=== PATIENT | male | born 1990 | race Caucasian/White ===

== ENCOUNTER 2023-05-18 11:16 | Day surgery (SDC) | payer OTHER, SELFPAY ==
[2023-05-18] VITALS (18 sets, daily range): BP systolic 118–167; BP diastolic 72–100; PULSE 18–89; RESP 10–17; TEMP 35.9–37.1; O2SAT 61–98; BMI 39.9
--- NOTE | 2023-05-18 11:45 | ED_ITS ---
HPI - General Adult General Time Seen by Provider: 11:45 Date Seen: 05/18/23 Chief complaint: Abdominal Pain Stated complaint: Lower R abdominal pain, nausea Time Seen by Provider: 05/18/23 11:17 Source: patient Mode of arrival: ambulatory Limitations: no limitations History of Present Illness HPI narrative: Derik is a 32-year-old male with obstructive sleep apnea, moderate persistent asthma, history of bone graft presents emerged department via private car and self with abdominal pain. Patient states he was working overnight and [place], around 4:00 a.m. he developed some right lower quadrant pain with some radiation to the groin area and straight through to the back. Associated nausea vomiting, he did vomit 3 times this morning, he only ate a bag of chips prior to developing the pain, he has not eaten or drank anything since then. No fevers or chills, no upper respiratory complaints. Patient denies any abdominal surgeries, patient has not had anything like this in the past. Patient denies any smoking, he will occasionally drinks alcohol. Patient has had normal bowel movements, no urinary complaints. The pain is 8/10, constant and sharp in nature. Pain is better with laying still. Patient drove himself to the emergency department. Related Data Home Medications Medication Instructions Recorded Confirmed trazodone 50 mg tablet 50 mg PO QHS PRN 07/14/22 04/26/23 Previous Rx's Medication Instructions Recorded albuterol sulfate 90 mcg/actuation 2 puff inhalation Q4H PRN 07/14/22 aerosol inhaler (Proventil HFA) shortness of breath or wheezing #8.5 grams beclomethasone dipropionate 80 1 inh inhalation BID 30 days #10.6 07/14/22 mcg/actuation HFA breath activated grams aerosol (Qvar RediHaler) montelukast 10 mg tablet 10 mg PO QDAY #90 tabs 07/14/22 (Singulair) Allergies Allergy/AdvReac Type Severity Reaction Status Date / Time cat dander Allergy Severe Verified 05/18/23 12:24 Review of Systems Status of ROS: Reports: 10 or more systems reviewed and unremarkable except as noted in History and below [facility] Medical History Moderate persistent asthma ?J45.40 - Moderate persistent asthma, uncomplicated (ICD-10) KASSANDRA (obstructive sleep apnea) ?G47.33 - Obstructive sleep apnea (adult) (pediatric) (ICD-10) Surgical History H/O bone graft ?Z98.890 - Other specified postprocedural states (ICD-10) Social History Smoking Status: Never smoker How often do you have a drink containing alcohol: monthly or less AUDIT-C Alcohol total score: 1 Non-prescribed substance use: denies use Little interest or pleasure in doing things: not at all Feeling down, depressed, or hopeless: not at all service: No Exam Narrative: Exam Narrative: General: With no obvious distress laying comfortably HEENT: Pupils equal round reactive to light, extraocular muscles intact, oral mucosa moist Lung: Clear to auscultation bilaterally Heart: Normal sinus rhythm S1-S2 Abdomen: Soft, bowel sounds present, tender to palpation the right lower quadrant, no rebound or guarding. Periumbilical hernia present, nontender to palpation. Muscle skeletal: +5 strength upper lower extremities Neuro: Alert awake and oriented x3 Const: Vital Signs, click to edit/add: Vital Signs - 24 hr 05/18/23 11:24 05/18/23 12:17 05/18/23 12:18 Temperature 96.7 F L Pulse Rate [Pulse Oximeter] 58 L 57 L Respiratory Rate 16 Blood Pressure [Ri [facility]] 119/76 Pulse Oximetry 61 L 92 92 Oxygen Delivery Me thod Room Air Room Air 05/18/23 13:12 Temperature Pulse Rate [Pulse Oximeter] 79 Respiratory Rate 16 Blood Pressure [Ri t Upper Arm] 118/72 Pulse Oximetry 97 Oxygen Delivery Me thod Room Air Course Course ED Course: 11:30 AM: AIDET performed. Vitals are normal at this time, workup will include IV peripheral, 0.9 normal saline bolus, 4 mg IV Zofran, 15 mg IV Toradol, 0.5 mg IV Dilaudid for nausea and pain, will obtain CBC, CRP, CMP, lipase, urinalysis, suspect appendicitis versus diverticulitis versus urolithiasis versus less likely cholecystitis. Other differentials include aortic aneurysm, mesentery ischemia, bowel perforation, bowel obstruction, GERD, pancreatitis peptic ulcer disease pyelonephritis, urolithiasis testicular torsion inflammatory bowel disease as well as all etiologies. CBC showed leukocytosis, lactate elevated at 3.1 likely due to volume depletion less likely sepsis, or ischemia, metabolic panel within normal limits, glucose mildly elevated at 140, CRP was negative, will plan to repeat lactate level once fluid administration is complete, plan to obtain CT abdomen pelvis with IV contrast rule out appendicitis. Patient's pain has been controlled. Reevaluation(s) Reevaluation #1: CT abdomen pelvis with IV contrast: IMPRESSION: 1. Appendix measures 9 millimeter in diameter with a 4 millimeter appendicolith. Mild periappendiceal fat stranding. Findings are concerning for acute appendicitis. 2. Moderate fat containing periumbilical hernia with mild fat stranding may represent incarceration. Consider correlation with physical examination for tenderness in this region. 1:00 PM: Spoke with Dr. Mingo VELA, general surgery on-call, she accepts care of the patient to a same day admission, no antibiotics to be given at this time, patient was updated was in agreement this plan. Time of Reevaluation #2: 12:56 Vital Signs Vital signs: Initial Vital Signs Temperature 96.7 F L 05/18/23 11:24 Temperature Source Temporal Artery Scan 05/18/23 11:24 Pulse Rate 58 L 05/18/23 11:24 Pulse Rhythm Regular 05/18/23 11:24 Blood Pressure 119/76 05/18/23 11:24 Blood Pressure Mean 90 05/18/23 11:24 Blood Pressure Position Sitting 05/18/23 11:24 Pulse Oximetry 61 L 05/18/23 11:24 Oxygen Delivery Method Room Air 05/18/23 11:24 Vital Signs Temperature 96.7 F L 05/18/23 11:24 Pulse Rate 58 L 05/18/23 11:24 Blood Pressure 119/76 05/18/23 11:24 Pulse Oximetry 61 L 05/18/23 11:24 Oxygen Delivery Method Room Air 05/18/23 11:24 Temperature 96.7 F L 05/18/23 11:24 Pulse Rate 79 05/18/23 13:12 Respiratory Rate 16 05/18/23 13:12 Blood Pressure 118/72 05/18/23 13:12 Pulse Oximetry 97 05/18/23 13:12 Oxygen Delivery Method Room Air 05/18/23 13:12 Medications Administered Medications: Discontinued Medications Generic Name Dose Route Start Last Admin Trade Name Jorge Luisq PRN Reason Stop Dose Admin Hydromorphone HCl 0.5 mg 05/18/23 11:43 05/18/23 12:00 Hydromorphone 0.5 Mg/0.5 Ml Inj IVP 05/18/23 11:44 0.5 mg ONCE ONE Administration Sodium Chloride 1,000 mls @ 1,000 mls/hr 05/18/23 11:43 05/18/23 12:08 0.9 % Sodium Chloride 1000 Ml IV 05/18/23 12:42 1,000 mls/hr .Q1H HARRY Administration Ketorolac Tromethamine 15 mg 05/18/23 11:43 05/18/23 12:05 Ketorolac 15 Mg/Ml Inj IVP 05/18/23 11:44 15 mg ONCE ONE Administration Ondansetron HCl 4 mg 05/18/23 11:43 05/18/23 12:03 Ondansetron 2 Mg/Ml Inj IVP 05/18/23 11:44 4 mg ONCE ONE Administration Medical Decision Making Lab Data Labs: Lab Results 05/18/23 Range/Units 11:35 WBC 13.41 H (4.50-11.00) K/uL RBC 4.99 (4.30-5.90) m/uL Hgb 13.9 (13.5-17.5) gm/dL Hct 43.0 (37.0-53.0) % MCV 86 (80-100) fL MCH 28 (26-34) pg MCHC 32 (32-36) gm/dL RDW Coeff of Susanna 13.2 (11.5-15.5) % Plt Count 282 (140-440) K/uL Neut % (Auto) 81.3 H (42.0-72.0) % Lymph % (Auto) 13.0 L (20-44) % [place] % (Auto) 4.3 (0.0-11.0) % Eos % (Auto) 1.2 (0.0-7.0) % Baso % (Auto) 0.1 (0.0-3.0) % Neut # (Auto) 10.90 H (1.7-7.0) K/uL Lymph # (Auto) 1.70 (0.90-2.90) K/uL [place] # (Auto) 0.60 (0.00-0.90) K/UL Eos # (Auto) 0.20 (0.00-0.50) K/uL Baso # (Auto) 0.00 (0.00-0.30) K/uL Abs Immat Gran (auto) 0.00 (0.00-0.30) K/uL Imm/Tot Granulo (auto) 0.1 % Sodium 138 (135-149) mmol/L Potassium 4.8 (3.6-5.1) mmol/L Chloride 105 (96-114) mmol/L Carbon Dioxide 20 (20-32) mmol/L Anion Gap 13 (7-15) mEq/L BUN 14 (5-24) mg/dL Creatinine 0.8 (0.5-1.5) mg/dL Estimated Creat Clear 123.94 Estimated GFR 121 ml/min Glucose 140 H (60-115) mg/dL Lactate 3.1 H (0.5-1.9) mmol/L Calcium 9.5 (8.4-10.6) mg/dL Total Bilirubin 0.7 (0.1-1.5) mg/dL AST 32 (12-35) U/L ALT 33 (4-50) U/L Alkaline Phosphatase 65 (40-150) U/L C-Reactive Protein < 0.5 L (0.5-1.0) mg/dL Total Protein 8.4 H (6.0-8.3) g/dL Albumin 4.7 (3.3-5.0) g/dL Lipase 38 (23-300) U/L Discharge Plan Discharge Clinical Impression: Periumbilical hernia, Acute appendicitis Patient Disposition: XFER to OR Follow Up/Referrals: Theodora Simon MD [Staff Physician] -
[2023-05-18 11:48] LABS: Lactate* 3.1 mmol/L (0.5-1.9)
[2023-05-18 11:51] LABS: Basophils Percent Auto 0.1 % (0.0-3.0); Eosinophils Percent Auto 1.2 % (0.0-7.0); Hemoglobin* 13.9 gm/dL (13.5-17.5); Immature Granulocytes Pct Auto 0.1 %; Mean Corpuscular HGB Conc 32 gm/dL (32-36); Mean Corpuscular Hemoglobin 28 pg (26-34); Mean Corpuscular Volume 86 fL (80-100); Monocytes Percent Auto 4.3 % (0.0-11.0); Neutrophils Percent Auto 81.3 % (42.0-72.0); Platelet Count* 282 K/uL (140-440); RDW Coefficient of Variation % 13.2 % (11.5-15.5); Red Blood Count 4.99 m/uL (4.30-5.90); White Blood Count* 13.41 K/uL (4.50-11.00)
[2023-05-18 11:53] LABS: Slide Review Reflex No
[2023-05-18] MEDS: HYDROmorphone 0.5 mg/0.5 ml inj IVP (12:00)
[2023-05-18] MEDS: ONDANSETRON 2 MG/ML inj 4 MG IVP (12:03)
[2023-05-18] MEDS: KETOROLAC 15 MG/ML inj IVP (12:05)
[2023-05-18] MEDS: 0.9 % SODIUM CHLORIDE 1000 ml 1,000 ML IV ×2 (12:08→13:27)
--- NOTE | 2023-05-18 12:12 | CT_ITS ---
Patient: ANTONY CHESTER Facility:?[facility] Patient ID:?[id number] Site Patient ID:?[id number]. Site :?[id number] Study:?CT-Abdomen/Pelvis W/ 125CC ISOVUE 370-05/18/2023 12:32:54 PM Ordering Physician:VASQUEZ Final Report: INDICATION: Right lower quadrant abdominal pain TECHNIQUE: CT of the abdomen and pelvis was obtained with 125 mL of Isovue 370 intravenous contrast. Please note that all CT scans at this facility use dose modulation, iterative reconstruction, and/or weight-based dosing when appropriate to reduce radiation dose to as low as reasonably achievable. COMPARISON: None. FINDINGS: Lower thorax: Normal. Liver and biliary tree: Normal. Gallbladder: Normal. Spleen: Normal. Pancreas: Normal. Adrenal glands: Normal. Kidneys and ureters: No hydronephrosis. No obstructing renal calculi. Gastrointestinal tract: Appendix measures 9 millimeter in diameter (2/113) with a 4 millimeter appendicolith. Mild periappendiceal fat stranding. No evidence of bowel obstruction. Peritoneal cavity: Mild periappendiceal fat stranding. Bladder: Normal. Pelvic organs: Normal. Vasculature: Normal. Lymph nodes: Normal. Abdominal wall: Moderate fat containing periumbilical hernia with mild fat stranding. Small [id number]-right fat containing inguinal hernias. Musculoskeletal: Normal. IMPRESSION: 1. Appendix measures 9 millimeter in diameter with a 4 millimeter appendicolith. Mild periappendiceal fat stranding. Findings are concerning for acute appendicitis. 2. Moderate fat containing periumbilical hernia with mild fat stranding may represent incarceration. Consider correlation with physical examination for tenderness in this region. Please note that all CT scans at this facility use dose modulation, iterative reconstruction, and/or weight-based dosing when appropriate to reduce radiation dose to as low as reasonably achievable. Dictated by Harjinder Hernandez MD @ 05/18/2023 12:44:24 PM Signed by:?Harjinder Hernandez MD @05/18/2023 12:44:24 PM (Electronic Signature)
[2023-05-18 12:32] LABS: Albumin* 4.7 g/dL (3.3-5.0)
[2023-05-18 12:33] LABS: Chloride* 105 mmol/L (96-114); Potassium* 4.8 mmol/L (3.6-5.1); Sodium* 138 mmol/L (135-149)
[2023-05-18 12:35] LABS: Alkaline Phosphatase* 65 U/L (40-150); Anion Gap 13 mEq/L (7-15); Aspartate Amino Transferase* 32 U/L (12-35); Bilirubin Total* 0.7 mg/dL (0.1-1.5); Blood Urea Nitrogen* 14 mg/dL (5-24); Carbon Dioxide* 20 mmol/L (20-32); Creatinine* 0.8 mg/dL (0.5-1.5); Est. Creatinine Clearance* 123.94; Estimated Glomerular Filt Rate 121 ml/min; Total Protein* 8.4 g/dL (6.0-8.3)
[2023-05-18 12:36] LABS: Alanine Aminotransferase* 33 U/L (4-50); Calcium* 9.5 mg/dL (8.4-10.6); Glucose* 140 mg/dL (60-115); Lipase* 38 U/L (23-300)
[2023-05-18 12:41] LABS: C Reactive Protein* < 0.5 mg/dL (0.5-1.0)
[2023-05-18 13:34] LABS: Appearance Urine Clear (Clear); Bilirubin Urine Negative (Negative); Blood Urine Negative (Negative); Color Urine Yellow (Yellow); Glucose Urine Negative (Negative); Ketones Urine Negative (Negative); Leukocyte Esterase Urine Negative (Negative); Nitrite Urine Negative (Negative); Protein Urine Negative (Negative); Urobilinogen Urine 0.2 (0.2-1.0)
[2023-05-18 13:47] LABS: RBC Urine 0-2 (0-2); Squamous Epithelial Cell Urine Few (None-Few); WBC Urine 0-2 (0-5)
--- NOTE | 2023-05-18 14:13 | PC.NURSE ---
Report given to Denae LAGUNAS. All belongings sent with patient.
[2023-05-18] MEDS: 0.9 % SODIUM CHLORIDE 1000 ml 1,000 ML 75 ML IV (14:47)
[2023-05-18 15:01] LABS: Lactate* 2.5 mmol/L (0.5-1.9)
--- NOTE | 2023-05-18 16:08 | P.GSHP_ITS ---
History of Present Illness History of Present Illness Date Seen: 05/18/23 Chief complaint: Lower R abdominal pain, nausea Narrative: Derik Ibarra is a 32 year old male who presented to emergency room with right lower quadrant abdominal pain this started at 4:00 a.m. in the morning. Patient was at work. The pain persistent and did not go way. The pain was worse with movement. The pain was described as dull and sharp. Patient had nausea but no vomiting. He did not notice passing gas today. Patient's workup in the emergency room was personally reviewed by me. He was found to have an elevated WBC of 13.4. His lactate was elevated. An abdominal CT was obtained that showed a wall enhancing appendix with minimal periappendiceal inflammation and presence of appendicolith. There was no evidence of dilated small large intestine. Patient also had an incarcerated fat containing umbilical hernia. Patient denied pain at the umbilicus. Review of Systems Narrative: General: no fevers CV: No chest pain Resp: Patient has a history of asthma and has been using his albuterol inhaler daily. GI: See above : The right lower quadrant pain radiates to his right testicle. Skin: no new rashes Neuro: no muscle weakness PFSH PFSH Medical History Moderate persistent asthma ?J45.40 - Moderate persistent asthma, uncomplicated (ICD-10) KASSANDRA (obstructive sleep apnea) ?G47.33 - Obstructive sleep apnea (adult) (pediatric) (ICD-10) Surgical History H/O bone graft ?Z98.890 - Other specified postprocedural states (ICD-10) Social History Smoking Status: Never smoker How often do you have a drink containing alcohol: monthly or less AUDIT-C Alcohol total score: 1 Non-prescribed substance use: denies use Little interest or pleasure in doing things: not at all Feeling down, depressed, or hopeless: not at all service: No Meds Home Medications and Allergies Home Medications Medication Instructions Recorded Confirmed Type trazodone 50 mg tablet 50 mg PO QHS PRN 07/14/22 05/18/23 History montelukast 10 mg tablet 10 mg PO DAILY 05/18/23 05/18/23 History (Singulair) Allergies Allergy/AdvReac Type Severity Reaction Status Date / Time cat dander Allergy Severe Verified 05/18/23 12:24 Exam Narrative: Exam Narrative: General appearance: Alert, cooperative, and in no distress Pulmonary: Chest symmetric, lungs clear bilaterally Cardiovascular Heart: Regular rate and rhythm, S1, S2, no murmurs/rubs/gallops Gastrointestinal Abdominal: soft, obese, not distended, tender to palpation in the right lower quadrant with rebound tenderness and positive Rovsing sign. Patient also has a small umbilical hernia that is reducible. Skin: Normal skin color, texture, and turgor. No rashes or lesions. Psychiatric: Alert, cooperative, normal affect. Const: Vital Signs, click to edit/add: Vital Signs - 24 hr 05/18/23 11:24 05/18/23 12:17 05/18/23 12:18 Temperature 96.7 F L Pulse Rate [Pulse Oximeter] 58 L 57 L Respiratory Rate 16 Blood Pressure [Ri ght Arm] Blood Pressure [Ri ght Upper Arm] 119/76 Pulse Oximetry 61 L 92 92 Oxygen Delivery Me thod Room Air Room Air 05/18/23 13:12 05/18/23 14:10 05/18/23 15:54 Temperature 98.6 F 98.2 F Pulse Rate [Pulse Oximeter] 79 63 75 Respiratory Rate 16 14 16 Blood Pressure [Ri ght Arm] 128/72 128/76 Blood Pressure [Ri ght Upper Arm] 118/72 Pulse Oximetry 97 96 75 L Oxygen Delivery Me thod Room Air Room Air Room Air Progress Note:A&P Assessment and plan (1) Acute appendicitis: Status: Acute Assessment and Plan: 32-year-old male presents with early acute appendicitis. I discussed with the patient his laboratory and imaging findings. On his CT there is evidence of wall enhancing appendix with mild periappendiceal inflam mation concerning for acute appendicitis. Patient's umbilical hernia is not tender to palpation and has not been symptomatic. I recommended to proceed with laparoscopic appendectomy. The procedure was discussed in detail. The risks associated procedure including infection, bleeding, injury to intra-abdominal organs and possible need for additional procedures were all discussed with the patient, and he agreed to proceed. We briefly discussed the management of umbilical hernia and if patient develops any symptoms associated with his umbilical hernia, he can come to surgery clinic for consultation.
[2023-05-18] MEDS: CEFAZOLIN 2 GM INJ IVP (16:25)
[2023-05-18] MEDS: BUPIVACAINE 0.25% 30 ML INJECTION (16:57)
--- NOTE | 2023-05-18 17:18 | PM.GSPRC ---
Operative Note Date of procedure: 05/18/23 Pre-op diagnosis: 1. Acute appendicitis. Post-op diagnosis: Same Type of Procedure: 1. Laparoscopic appendectomy. Indications: 32-year-old male presented to emergency room with right lower quadrant abdominal pain that started early in the morning. The pain was persistent and was not going away. He had nausea but no vomiting. In the emergency room he was found to have an elevated WBC of 13. An abdominal CT was obtained that showed wall enhancing appendix with mild periappendiceal inflammation with an appendicolith. There was no dilated loops of small large intestine. On clinical exam patient had tenderness to palpation in the right lower quadrant with rebound tenderness and positive Rovsing sign. Given patient's clinical history and his imaging findings, acute appendicitis was suspected, and laparoscopic appendectomy was recommended. The procedure was discussed in detail. The risks associated procedure including infection, bleeding, and injury to intra-abdominal organs were all discussed with the patient, and he agreed to proceed. Procedure Description: After discussing the risks and benefits of the procedure, the patient signed informed consent.? The operative site was marked and the patient was brought to the operating room and placed on the operating table in supine position.? Care was taken to pad the patient's pressure points.?? The patient was then intubated by anesthesia.?? The operative site was then prepped and draped in the usual sterile fashion.? A time-out was then performed. A 5-mm laparoscopy port was placed in the left upper quadrant guided by a 5-mm laparoscope placed into a translucent trochar. Passage through the layers of the abdominal wall was visualized with the laparoscope. A pneumoperitoneum was established. A 30-degree 5-mm laparoscope was advanced into the abdomen. The abdomen was briefly surveyed, and there was no evidence of diffuse peritonitis. A 12-mm port and a 5-mm port were placed in the left low quadrant and suprapubically, respectively, under direct visualization by laparoscope. Left upper quadrant entrance port was then examined intraabdominally by placing the camera through the left lower quadrant port and no intraabdominal injury was seen. The patient was placed in Trendelenburg position, allowing the abdominal contents to shift cephalad. The small bowel was moved toward the midline in the abdomen and this allowed for identification of the appendix. The distal third of the appendix appeared to be inflamed. The appendix was grasped and dissected from the peritoneum using Harmonic scalpel. Appendiceal mesentery was divided with Harmonic scalpel. When the base of the appendix was visualized, a vascular load Endo-MARGOT stapler was advanced through the 12-mm port into the abdomen and appendix was stapled off at its base. The appendix was then placed in an endoscopic retrieval bag and extracted from the abdomen through the 12-mm port. The abdomen was surveyed for hemostasis. And no bleeding was seen. The 12-mm port was withdrawn and the fascial defect was closed with 0-0 Vicryl stitch using Ricardo Nuno needle under direct visualization. The 5-mm port was removed under direct visualization. The left upper quadrant port was used to evacuate the pneumoperitoneum and then withdrawn. The skin incisions were closed with 4-0 monocryl. Steri-Strips were applied over the incisions. All counts were correct at the end of the case. The patient tolerated this procedure well and was transferred to PACU in stable condition. Findings: Hyperemic and inflamed distal appendix with no evidence of perforation. Anesthesia: GETA Surgeon: Danny Aguila MD Estimated blood loss (mL): 5 Specimen: Appendix Condition: stable Disposition: PACU
--- NOTE | 2023-05-18 17:19 | W.ANESCHARGE ---
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
--- NOTE | 2023-05-18 17:45 | SUR.PHASEI ---
patient met pacu d/c criteria per anesthesia
[2023-05-18] MEDS: HYDROCODONE-ACETAMIN 5-325 MG 1 TAB PO (18:06)
[2023-05-18] MEDS: LACTATED RINGERS 1000 ML 1,000 ML 100 ML IV (18:10)
--- NOTE | 2023-05-18 18:37 | PC.NURSE ---
End of Shift: Patient pleasant and cooperative. Patient vitally stable, lungs clear, BS WNL, IV running LR at 100. Patient not up from yet. Patient rated pain at most 3/10, 2 norco tabs given. Abdominal lap sites x3 C/D/I. Patient tolerating regular diet, eating crackers, pudding, and popsicle.
--- NOTE | 2023-05-18 19:48 | PC.NURSE ---
Discharge: Patient urinated before discharge. Patient signed belonging sheet and discharge form, patient had no further questions regarding discharge. Patient left the floor ambulating to home at 1946.
== END 2023-05-18 19:46 | disposition home or self-care (01) ==
LOC: ED 13:12 → OR 14:02 → MEDSURG 14:03
PROVIDERS: Emergency Provider Student in an Organized Health Care Education/Training Program; Visit Provider Surgery
PROC: 0DTJ4ZZ Resection of Appendix, Percutaneous Endoscopic Approach (ICD-10-PCS; CPT 44970; principal; 2023-05-18 16:00)
DX: K35.80 Unspecified acute appendicitis (principal); R10.31 Right lower quadrant pain; K42.9 Umbilical hernia without obstruction or gangrene; G47.33 Obstructive sleep apnea (adult) (pediatric); J45.40 Moderate persistent asthma, uncomplicated
CPT/HCPCS: 44970; 00840; 36415; 74177; 80053; 81001; 83605; 83690; 85025; 86140; 88304; 94761; 99140; 99283; 99285; A9270; J0330; J0665; J0690; J1100; J1170; J1885; J2250; J2405; J2704; J2710; J3010; J7030; J7120; Q9967

== ENCOUNTER 2023-05-19 19:23 | Emergency (ER) | payer OTHER, SELFPAY ==
--- NOTE | 2023-05-19 19:25 | ED.GENADULT ---
HPI - General Adult General Date Seen: 05/19/23 Chief complaint: Post Op Complication Stated complaint: Abdominal pain post appendectomy Time Seen by Provider: 05/19/23 19:25 History of Present Illness HPI narrative: 32-year-old male who is 1 day status post laparoscopic appendectomy, also with a history of sleep apnea, asthma, presenting to the ER today for re-evaluation of abdominal pain. He was seen in the ER yesterday for abdominal pain was diagnosed with acute appendicitis. Workup from ER 05/17: WBC 13.4, hemoglobin 13.9, platelet count 282 Sodium 138, potassium 4.8, chloride 105, bicarb 20, BUN 14, creatinine 0.8, glucose 140, LFTs normal. Lipase normal 38. Venous lactic 3.1 CT abdomen pelvis with IV contrast: IMPRESSION: 1. Appendix measures 9 millimeter in diameter with a 4 millimeter appendicolith. Mild periappendiceal fat stranding. Findings are concerning for acute appendicitis. 2. Moderate fat containing periumbilical hernia with mild fat stranding may represent incarceration. Consider correlation with physical examination for tenderness in this region. He underwent laparoscopic appendectomy. Report is that the surgery went well. He was discharged home with his yesterday Evening. Since discharge he has had steadily worsening pain centered mostly in his left lower quadrant and around his left lower quadrant laparoscopic incision. There has not been any redness or drainage around the incision. No bleeding. The pain is sharp and stabbing and searing in nature. It is very severe whenever he tries to move her 1 every tries to go from sitting to so standing or sitting to laying. It is still present but much less intense when he holds still. He has not had a fever. No nausea or vomiting. He feels like he needs to pass a bowel movement but has not been able to. He has been taking the prescribed pain meds (hydrocodone), and finds that they do not help. No fever. No urinary symptoms. No pain in his groin or testicles. Related Data Home Medications Medication Instructions Recorded Confirmed trazodone 50 mg tablet 50 mg PO QHS PRN 07/14/22 05/18/23 montelukast 10 mg tablet 10 mg PO DAILY 05/18/23 05/18/23 (Singulair) Previous Rx's Medication Instructions Recorded albuterol sulfate 90 mcg/actuation 2 puff inhalation Q4H PRN 07/14/22 aerosol inhaler (Proventil HFA) shortness of breath or wheezing #8.5 grams beclomethasone dipropionate 80 1 inh inhalation BID 30 days #10.6 07/14/22 mcg/actuation HFA breath activated grams aerosol (Qvar RediHaler) hydrocodone 5 mg-acetaminophen 325 1 tab PO Q6H PRN pain #20 tabs 05/18/23 mg tablet Allergies Allergy/AdvReac Type Severity Reaction Status Date / Time cat dander Allergy Severe Verified 05/19/23 20:18 [facility] Medical History Moderate persistent asthma ?J45.40 - Moderate persistent asthma, uncomplicated (ICD-10) KASSANDRA (obstructive sleep apnea) ?G47.33 - Obstructive sleep apnea (adult) (pediatric) (ICD-10) Surgical History H/O bone graft ?Z98.890 - Other specified postprocedural states (ICD-10) Social History Smoking Status: Never smoker How often do you have a drink containing alcohol: monthly or less AUDIT-C Alcohol total score: 1 Non-prescribed substance use: denies use Little interest or pleasure in doing things: not at all Feeling down, depressed, or hopeless: not at all service: No Exam Narrative: Exam Narrative: Constitutional: Appears well-developed and well-nourished. Alert. Conversant. Uncomfortable and prefers to stay standing straight up as that is his position of least discomfort with his abdomen. He has a lot of pain when trying to reposition the bed for abdominal exam. Non toxic. HENT: Head: Atraumatic. Nose: Nose normal. Mouth/Throat: Oral mucosa is clear and moist. no trismus. Eyes: Conjunctivae normal. EOM normal. Pupils equal, round, and reactive to light. No scleral icterus. Neck: Normal range of motion. Neck supple. No tracheal deviation present. Cardiovascular: Normal rate, regular rhythm. No gallop. No friction rub. No murmur heard. Symmetric radial artery pulses Pulmonary/Chest: Effort normal. No stridor. No respiratory distress. No wheezes. No rales. No rhonchi . No tenderness. Abdominal: Soft. Bowel sounds normal. No distension. No mass. Marked left lower quadrant and left mid abdominal tenderness. No CVA tenderness. No rebound. No guarding. Left lower quadrant, suprapubic, and umbilical incisions all look clean, dry. Incisions are well apposed. No erythema. No bleeding. No drainage. Musculoskeletal: RUE: Normal range of motion. No tenderness. No deformity LUE: Normal range of motion. No tenderness. No deformity RLE: Normal range of motion. No edema. No tenderness. No deformity LLE: Normal range of motion. No edema. No tenderness. No deformity Neurological: Alert and oriented to person, place, and time. Normal strength. CN II-VII intact. No sensory deficit. GCS eye subscore is 4. GCS verbal subscore is 5. GCS motor subscore is 6. Normal coordination Skin: Skin is warm and dry. No rash noted. No pallor. Normal capillary refill. Psychiatric: Normal mood. Normal affect. Const: Vital Signs, click to edit/add: Vital Signs - 24 hr 05/19/23 19:33 Temperature 97.6 F Pulse Rate [Pulse Oximeter] 98 Respiratory Rate 18 Blood Pressure [Ri ght Upper Arm] 153/108 H Pulse Oximetry 95 Oxygen Delivery Me thod Room Air Course Vital Signs Vital signs: Initial Vital Signs Temperature 97.6 F 05/19/23 19:33 Temperature Source Temporal Artery Scan 05/19/23 19:33 Pulse Rate 98 05/19/23 19:33 Respiratory Rate 18 05/19/23 19:33 Blood Pressure 153/108 H 05/19/23 19:33 Blood Pressure Mean 123 H 05/19/23 19:33 Pulse Oximetry 95 05/19/23 19:33 Oxygen Delivery Method Room Air 05/19/23 19:33 Vital Signs Temperature 97.6 F 05/19/23 19:33 Pulse Rate 98 05/19/23 19:33 Respiratory Rate 18 05/19/23 19:33 Blood Pressure 153/108 H 05/19/23 19:33 Pulse Oximetry 95 05/19/23 19:33 Oxygen Delivery Method Room Air 05/19/23 19:33 Temperature 97.6 F 05/19/23 19:33 Pulse Rate 98 05/19/23 19:33 Respiratory Rate 18 05/19/23 19:33 Blood Pressure 153/108 H 05/19/23 19:33 Pulse Oximetry 95 05/19/23 19:33 Oxygen Delivery Method Room Air 05/19/23 19:33 Medications Administered Medications: Generic Name Dose Route Start Last Admin Trade Name Vicky PRN Reason Stop Dose Admin Hydromorphone HCl 0.5 mg 05/19/23 19:49 05/19/23 20:21 Hydromorphone 0.5 Mg/0.5 Ml Inj IVP 0.5 mg Q1H PRN Administration Pain Discontinued Medications Generic Name Dose Route Start Last Admin Trade Name Freq PRN Reason Stop Dose Admin Ondansetron HCl 4 mg 05/19/23 19:49 05/19/23 20:21 Ondansetron 2 Mg/Ml Inj IVP 05/19/23 19:50 4 mg ONCE ONE Administration Medical Decision Making MDM Narrative Medical decision making narrative: Presented on postop day 1 after laparoscopic appendectomy for a ruptured appendicitis with left lower quadrant abdominal pain that seems to be centered most around his left lower quadrant laparoscopic incision. On exam he is tender in the left lower quadrant and a bit in the left mid abdomen. All incisions are dry, well apposed. No signs of surrounding erythema or evolving cellulitis or abdominal wall abscess.. The differential diagnosis of abdominal pain includes: Abdominal wall abscess, cellulitis, bleeding, inadvertent bowel perforation on the left side, residual free air, abscess, rupture, internal bleeding, as well as nonsurgical complications such as Cholecystitis, Diverticulitis, Enteritis/Colitis, amongst many other etiologies. Laboratory testing does not reveal a cause for the patient's pain. Will white count is actually down compared to yesterday. Repeat CT Imaging is noted to be normal. The exact etiology of the abdominal pain is not clear at this time. No life threatening cause or need for emergent surgery or hospital admission is detected today. The patient was advised that if symptoms do not completely resolve within another 24-48 hours re-evaluation with primary care or return to the ED is indicated. The patient also understands that if they worsen, they should return to the ER right away. I discussed the uncertainty about the diagnosis and answered the patient's questions. Abdominal pain return precautions discussed. Plan for pain management will be for the patient to use ibuprofen and ice as 1st line. Use prescription pain killers a second-line. He discussed that is really not getting much relief from hydrocodone. He has only been taking 1 tablet per dose. After discussion of the options we decided to discontinue hydrocodone and will give him. Can for Percocet 5/320 5-12 tablets. He will use 1 or 2 tablets every 4-6 hours if needed for pain. Opiate and sedation precautions reviewed. Lab Data Labs: Lab Results 05/19/23 Range/Units 20:00 WBC 9.67 (4.50-11.00) K/uL RBC 4.44 (4.30-5.90) m/uL Hgb 12.5 L (13.5-17.5) gm/dL Hct 38.6 (37.0-53.0) % MCV 87 (80-100) fL MCH 28 (26-34) pg MCHC 32 (32-36) gm/dL RDW Coeff of Susanna 13.2 (11.5-15.5) % Plt Count 248 (140-440) K/uL Neut % (Auto) 63.5 (42.0-72.0) % Lymph % (Auto) 29.0 (20-44) % [place] % (Auto) 6.2 (0.0-11.0) % Eos % (Auto) 0.9 (0.0-7.0) % Baso % (Auto) 0.1 (0.0-3.0) % Neut # (Auto) 6.14 (1.7-7.0) K/uL Lymph # (Auto) 2.80 (0.90-2.90) K/uL [place] # (Auto) 0.60 (0.00-0.90) K/UL Eos # (Auto) 0.09 (0.00-0.50) K/uL Baso # (Auto) 0.01 (0.00-0.30) K/uL Abs Immat Gran (auto) 0.03 (0.00-0.30) K/uL Imm/Tot Granulo (auto) 0.3 % Sodium 139 (135-149) mmol/L Potassium 4.1 (3.6-5.1) mmol/L Chloride 107 (96-114) mmol/L Carbon Dioxide 25 (20-32) mmol/L Anion Gap 7 (7-15) mEq/L BUN 16 (5-24) mg/dL Creatinine 0.8 (0.5-1.5) mg/dL Estimated Creat Clear 123.94 Estimated GFR 121 ml/min Glucose 100 (60-115) mg/dL Lactate 1.6 (0.5-1.9) mmol/L Calcium 9.0 (8.4-10.6) mg/dL Imaging Data CT scan - abdomen: Attestation: I have reviewed the pertinent imaging results. Radiologist's impression: IMPRESSION: 1. No acute findings. 2. Interval postoperative changes of appendectomy. Surgical clip in the right lower quadrant 3. No free air or free fluid. 4. Stable fat containing periumbilical hernia. Stable fat stranding which may represent inflammation. Stable small yphy-fgyfrph-tshc-right fat containing inguinal hernias. Discharge Plan Discharge Clinical Impression: Acute postoperative abdominal pain, Abdominal pain, acute, left lower quadrant Patient Disposition: Home, Self-Care Condition: Stable Instructions: Abdominal Pain (ED) Additional Instructions: As we discussed, your pain is probably from the healing incision in your left lower quadrant. Monitor this area carefully for any signs of worsening infection such as redness, pus draining from the wound, bleeding. If you have any worsening pain, high fever, or any problems, call your surgeon or come back to the ER right away. To manage the pain continues use ice and ibuprofen as needed. Use prescription pain killer (Percocet) 1 or 2 tablets every 6 hours if needed. Use caution because Percocet can cause drowsiness, dizziness, constipation, and can be addictive. Do not take Percocet at the same time as your taking acetaminophen or hydrocodone. Do not mix Percocet with hydrocodone. Be sure to follow-up for your postop check with Dr. Sales. Prescriptions: No Action trazodone 50 mg tablet 50 mg PO QHS PRN Qvar RediHaler 80 mcg/actuation HFA aerosol breath activated 1 inh inhalation BID 30 Days Qty: 10.6 11RF albuterol sulfate [Proventil HFA] 90 mcg/actuation HFA aerosol inhaler 2 puff inhalation Q4H PRN (Reason: shortness of breath or wheezing) Qty: 8.5 11RF montelukast [Singulair] 10 mg tablet 10 mg PO DAILY hydrocodone-acetaminophen 5-325 mg tablet 1 tab PO Q6H PRN (Reason: pain) Qty: 20 0RF Follow Up/Referrals: Provider,Not a Local [Primary Care Provider] - Stand Alone Forms: [place] [facility] Info Instructions
[2023-05-19 19:33] VITALS: BP 153/108; PULSE 98; RESP 18; TEMP 36.4; O2SAT 95; BMI 40.7
--- NOTE | 2023-05-19 19:49 | CT_ITS ---
Patient: ANTONY CHESTER Facility:?[facility] Patient ID:?[id number] Site Patient ID:?[id number]. Site :?1990 Study:?CT-Abdomen/Pelvis W/ 128CC ISOVUE 370-05/19/2023 8:17:03 PM Ordering Physician:USAMA Final Report: INDICATION: Left lower quadrant abdominal pain. Appendectomy. COMPARISON: 05/18/2023. TECHNIQUE: CT mm pelvis with IV contrast. IAC 3378, wanted 28 cc. FINDINGS: Liver gallbladder: Normal. Spleen: Normal. Pancreas: Unremarkable. Adrenal glands: Normal. Kidneys ureter bladder: No radio masses. No renal calculi. No hydronephrosis. Pelvis: Unremarkable. GI: Compared to the previous exam, postoperative changes of appendectomy. Surgical clips in the right lower quadrant. Otherwise, no abnormal bowel distention, bowel wall thickening or inflammatory change. Peritoneum: No free air or free fluid. Lymph nodes: No adenopathy. Vascular: Normal caliber abdominal aorta. Lung bases: Lung bases are clear. Abdominal wall: Stable fat containing periumbilical hernia. Associated fat stranding which may represent inflammation. Stable small ccje-znchekj-nyvv-right fat containing inguinal hernias. Musculoskeletal: No fractures. Grade 1 anterolisthesis of L5 on S1 measured approximate 4 mm with associated bilateral pars defects. IMPRESSION: 1. No acute findings. 2. Interval postoperative changes of appendectomy. Surgical clip in the right lower quadrant 3. No free air or free fluid. 4. Stable fat containing periumbilical hernia. Stable fat stranding which may represent inflammation. Stable small zssi-ydszart-szxb-right fat containing inguinal hernias. Please note that all CT scans at this facility use dose modulation, iterative reconstruction, and/or weight-based dosing when appropriate to reduce radiation dose to as low as reasonably achievable. Dictated by Parrish Morley MD @ 05/19/2023 8:40:26 PM Signed by:?Parrish Morley MD @05/19/2023 8:40:26 PM (Electronic Signature)
[2023-05-19 20:04] LABS: Lactate* 1.6 mmol/L (0.5-1.9)
[2023-05-19 20:06] LABS: Basophils Absolute Auto 0.01 K/uL (0.00-0.30); Basophils Percent Auto 0.1 % (0.0-3.0); Eosinophils Absolute Auto 0.09 K/uL (0.00-0.50); Eosinophils Percent Auto 0.9 % (0.0-7.0); Hematocrit 38.6 % (37.0-53.0); Hemoglobin* 12.5 gm/dL (13.5-17.5); Immature Granulocytes Abs Auto 0.03 K/uL (0.00-0.30); Immature Granulocytes Pct Auto 0.3 %; Mean Corpuscular HGB Conc 32 gm/dL (32-36); Mean Corpuscular Hemoglobin 28 pg (26-34); Mean Corpuscular Volume 87 fL (80-100); Monocytes Percent Auto 6.2 % (0.0-11.0); Neutrophils Absolute Auto 6.14 K/uL (1.7-7.0); Neutrophils Percent Auto 63.5 % (42.0-72.0); Platelet Count* 248 K/uL (140-440); RDW Coefficient of Variation % 13.2 % (11.5-15.5); Red Blood Count 4.44 m/uL (4.30-5.90); White Blood Count* 9.67 K/uL (4.50-11.00)
[2023-05-19 20:08] LABS: Slide Review Reflex No
[2023-05-19 20:21] LABS: Chloride* 107 mmol/L (96-114); Potassium* 4.1 mmol/L (3.6-5.1); Sodium* 139 mmol/L (135-149)
[2023-05-19] MEDS: ONDANSETRON 2 MG/ML inj 4 MG IVP (20:21)
[2023-05-19] MEDS: HYDROmorphone 0.5 mg/0.5 ml inj IVP (20:21)
[2023-05-19 20:24] LABS: Anion Gap 7 mEq/L (7-15); Blood Urea Nitrogen* 16 mg/dL (5-24); Carbon Dioxide* 25 mmol/L (20-32); Creatinine* 0.8 mg/dL (0.5-1.5); Est. Creatinine Clearance* 123.94; Estimated Glomerular Filt Rate 121 ml/min; Glucose* 100 mg/dL (60-115)
== END 2023-05-19 21:10 | disposition home or self-care (01) ==
PROVIDERS: Emergency Provider Emergency Medicine
DX: R10.32 Left lower quadrant pain (principal); G89.18 Other acute postprocedural pain
CPT/HCPCS: 36415; 74177; 80048; 81001; 83605; 85025; 96374; 96375; 99283; 99284; J1170; J2405; Q9967

== ENCOUNTER 2024-03-02 06:08 | Emergency (ER) | payer OTHER, SELFPAY ==
[2024-03-02 06:12] VITALS: BP 158/91; PULSE 89; RESP 18; TEMP 36.9; O2SAT 96; BMI 41.5
--- NOTE | 2024-03-02 06:18 | XR_ITS ---
Patient: ANTONY CHESTER Facility:?[facility] Patient ID:?[id number] Site Patient ID:?[id number]. Site :?1990 Study:?XRay-Extremity Right GREAT TOE-03/02/2024 7:16:51 AM Ordering Physician:ALEKSEY Final Report: Indication: Stubbed toe. Technique: Three view(s) of the right great toe. Comparison: None available. Findings: Normal alignment and joint spaces. No acute fracture. Normal bone density. Mild great toe soft tissue swelling. Impression: No acute osseous abnormality identified. Dictated by Anna Mcgrath MD @ 03/02/2024 7:45:10 AM Signed by:?Anna Mcgrath MD @03/02/2024 7:45:10 AM (Electronic Signature)
--- NOTE | 2024-03-02 06:23 | ED_ITS ---
HPI - General Adult General Chief complaint: Extremity Pain/Injury, Lower Stated complaint: R toe injury Time Seen by Provider: 03/02/24 06:17 History of Present Illness HPI narrative: Patient is a 33-year-old gentleman who dropped a heavy 5 lb object on his right great toe last night. He was able to treat himself at home but now is having severe pain. He has had no fevers no chills no night sweats. No erythema. He does have some mild bruising of the right great toe but no other significant symptoms. No other injuries noted. Related Data Home Medications ?Medication ?Instructions ?Recorded ?Confirmed trazodone 50 mg tablet 50 mg PO QHS PRN 07/14/22 05/18/23 montelukast 10 mg tablet 10 mg PO DAILY 05/18/23 05/18/23 (Singulair) Previous Rx's ?Medication ?Instructions ?Recorded beclomethasone dipropionate 80 1 inh inhalation BID 30 days #10.6 07/14/22 mcg/actuation HFA breath activated grams aerosol (Qvar RediHaler) albuterol sulfate 90 mcg/actuation 2 puff inhalation Q4H PRN 10/19/23 aerosol inhaler (Proventil HFA) shortness of breath or wheezing #8.5 grams Allergies Allergy/AdvReac Type Severity Reaction Status Date / Time cat dander Allergy Severe Verified 05/19/23 20:18 Review of Systems Status of ROS: Reports: 10 or more systems reviewed and unremarkable except as noted in History and below [facility] Medical History Moderate persistent asthma ?J45.40 - Moderate persistent asthma, uncomplicated (ICD-10) KASSANDRA (obstructive sleep apnea) ?G47.33 - Obstructive sleep apnea (adult) (pediatric) (ICD-10) Surgical History S/P laparoscopic appendectomy ?Z90.49 - Acquired absence of other specified parts of digestive tract (ICD- 10) H/O bone graft ?Z98.890 - Other specified postprocedural states (ICD-10) Social History Smoking Status: Never smoker How often do you have a drink containing alcohol: monthly or less AUDIT-C Alcohol total score: 1 Non-prescribed substance use: denies use service: No Exam Narrative: Exam Narrative: EXAM GENERAL: Patient appears comfortable and well. EYES: No scleral icterus. LYMPH: No supraclavicular or cervical lymphadenopathy. SKIN: Visible skin seen during exam normal or with benign process only. EXT: Examination the right great toe shows bruising ecchymosis. No skin breakdown. HEART: Regular rate and rhythm with no murmurs, rubs, or gallops. LUNGS: Clear to auscultation bilaterally with no crackles or wheezes. ABD: Soft, non tender, non distended. PSYCH: Good eye contact, speech is not pressured. Const: Vital Signs, click to edit/add: Vital Signs - 24 hr 03/02/24 06:12 Temperature 98.4 F Pulse Rate [Right Pulse Oximeter] 89 Respiratory Rate 18 Blood Pressure [Ri ght Upper Arm] 158/91 H Pulse Oximetry 96 Oxygen Delivery Me thod Room Air Course Course ED Course: Patient seen and examined. X-ray of the right great toe ordered. Vital Signs Vital signs: Initial Vital Signs Temperature 98.4 F 03/02/24 06:12 Temperature Source Temporal Artery Scan 03/02/24 06:12 Pulse Rate 89 03/02/24 06:12 Pulse Rhythm Regular 03/02/24 06:12 Respiratory Rate 18 03/02/24 06:12 Blood Pressure 158/91 H 03/02/24 06:12 Blood Pressure Mean 113 H 03/02/24 06:12 Blood Pressure Position Sitting 03/02/24 06:12 Pulse Oximetry 96 03/02/24 06:12 Oxygen Delivery Method Room Air 03/02/24 06:12 Vital Signs Temperature 98.4 F 03/02/24 06:12 Pulse Rate 89 03/02/24 06:12 Respiratory Rate 18 03/02/24 06:12 Blood Pressure 158/91 H 03/02/24 06:12 Pulse Oximetry 96 03/02/24 06:12 Oxygen Delivery Method Room Air 03/02/24 06:12 Temperature 98.4 F 03/02/24 06:12 Pulse Rate 89 03/02/24 06:12 Respiratory Rate 18 03/02/24 06:12 Blood Pressure 158/91 H 03/02/24 06:12 Pulse Oximetry 96 03/02/24 06:12 Oxygen Delivery Method Room Air 03/02/24 06:12 Medical Decision Making MDM Narrative Medical decision making narrative: PATIENT IS A 33-YEAR-OLD GENTLEMAN WHO DROPPED A HEAVY OBJECT ON HIS RIGHT GREAT TOE. I DID PERSONALLY REVIEW HIS X-RAY AND I DO NOT SEE ANY FRACTURES. I DID RECOMMEND A STIFF SHOE TYLENOL MOTRIN ICE. HE GETS ADVANCE HIS ACTIVITY TOLERATED. PATIENT WILL FOLLOW-UP WITH HIS REGULAR DOCTOR NEEDED. RECTAL DIAGNOSIS INCLUDES BUT NOT LIMITED TO CONTUSION FRACTURE DISLOCATION SPRAIN. Discharge Plan Discharge Clinical Impression: Contusion Patient Disposition: Home, Self-Care Condition: Stable Instructions: Contusion in Adults (ED) Additional Instructions: Stiff shoe Tylenol Motrin Ice Advanced activity as tolerated. Activity Level: No Restrictions Discharge Diet: Regular Prescriptions: No Action trazodone 50 mg tablet 50 mg PO QHS PRN Qvar RediHaler 80 mcg/actuation HFA aerosol breath activated 1 inh inhalation BID 30 Days Qty: 10.6 11RF montelukast [Singulair] 10 mg tablet 10 mg PO DAILY albuterol sulfate [Proventil HFA] 90 mcg/actuation HFA aerosol inhaler 2 puff inhalation Q4H PRN (Reason: shortness of breath or wheezing) Qty: 8.5 2RF Follow Up/Referrals: Provider,Not a Local [Primary Care Provider] - Stand Alone Forms: [facility] Info Instructions
== END 2024-03-02 06:54 | disposition home or self-care (01) ==
PROVIDERS: Emergency Provider Internal Medicine
DX: S90.111A Contusion of right great toe without damage to nail, initial encounter (principal); W20.8XXA Other cause of strike by thrown, projected or falling object, initial encounter
CPT/HCPCS: 73660; 99283